=== PATIENT | female | born 1965 | race Caucasian/White ===

== ENCOUNTER 2021-03-15 10:33 | Emergency (ER) | payer BC ==
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
== END 2021-03-15 13:00 | disposition home or self-care (01) ==
LOC: JP.ED 10:33
DX: S60.211A Contusion of right wrist, initial encounter (principal); S80.12XA Contusion of left lower leg, initial encounter; S20.212A Contusion of left front wall of thorax, initial encounter; Y04.0XXA Assault by unarmed brawl or fight, initial encounter
CPT/HCPCS: 99283

== ENCOUNTER 2022-03-22 07:34 | Day surgery (SDC) | payer BC ==
[2022-03-22] MEDS ORDERED: Lactated Ringers 1,000 ML IV SCH (08:15)
[2022-03-22] MEDS ORDERED: fentaNYL 100 MCG/2 ML SDV ONE (08:35)
[2022-03-22] MEDS ORDERED: Midazolam 1 MG/ML 2 ML SDV ONE (08:35)
[2022-03-22] MEDS ORDERED: Propofol 200 MG/20 ML SDV ONE (08:36)
== END 2022-03-22 10:16 | disposition home or self-care (01) ==
LOC: JP.SDS 07:34
PROVIDERS: ATTEND Family Medicine
DX: Z12.11 Encounter for screening for malignant neoplasm of colon (principal); J45.909 Unspecified asthma, uncomplicated
CPT/HCPCS: J2250; J2704; J3010; J7120